=== PATIENT | female | born 1995 | race Hispanic/Latino ===

== ENCOUNTER 2022-02-24 05:59 | Inpatient (IN) | payer OTHER, SELFPAY ==
[2022-02-24 06:36] VITALS: BMI 33.9
[2022-02-24] MEDS ORDERED: Methylergonovine 0.2 MG/ML VIAL IM PRN (06:38)
[2022-02-24] MEDS ORDERED: Carboprost 250 MCG/ML AMP IM PRN (06:38)
[2022-02-24] MEDS ORDERED: Promethazine HCl 25 MG/ML VIAL IM PRN (06:38)
[2022-02-24] MEDS ORDERED: Misoprostol 200 MCG TAB PR PRN (06:38)
[2022-02-24] MEDS ORDERED: Lidocaine 1% (PF) 30 ML VIAL SC PRN (06:38)
[2022-02-24] MEDS ORDERED: Butorphanol Tartrate 1 MG/ML VIAL SLOW IVP PRN (06:38)
[2022-02-24] MEDS ORDERED: Diphenoxylate HCl/Atropine Tablet PO PRN (06:38)
[2022-02-24] MEDS ORDERED: hydrALAZINE 20 MG/ML VIAL SLOW IVP PRN ×2 (06:38→17:41)
[2022-02-24] MEDS ORDERED: Ondansetron PF 4 MG/2 ML Vial IVP PRN (06:38)
[2022-02-24] MEDS ORDERED: Penicillin G Potassium 5 MILL.UNITS in Sodium Chloride 0.9% 100 ML IVPB SCH (06:45)
[2022-02-24] MEDS ORDERED: NS w/ Oxytocin 30 units 500 ML IV SCH ×2 (06:45)
[2022-02-24] MEDS ORDERED: Lactated Ringer's 1,000 ML IV SCH (06:45)
[2022-02-24 06:55] LABS: Hemoglobin 14.3 g/dL (12.0-15.5); Mean Corpuscular Hemoglobin 28.7 pg (27.0-33.0); Mean Corpuscular Volume 84.3 fl (81.6-98.3); Platelet Count 332 10x3/uL (150-450); RBC Distribution Width 13.2 % (11.5-14.5); Red Blood Cell (RBC) Count 4.98 10x6/uL (3.90-5.03); White Blood Cell (WBC) Count 14.3 10x3/uL (3.5-10.5)
[2022-02-24] MEDS ORDERED: Penicillin G Potassium 5 MILL.UNITS VIAL ONE (07:00)
[2022-02-24 07:28] LABS: Syphilis Antibody Nonreactive (Nonreactive); Syphilis Antibody Index 0.04 S/CO (<1.00 Non-Reactive)
[2022-02-24 07:30] LABS: Hep B Surf Ag Non-Reactive S/CO (NonReactive)
[2022-02-24 07:31] LABS: HBSAg Index 0.18 S/CO (0-0.99)
[2022-02-24] MEDS ORDERED: Fentanyl 2 mcg/Bup 0.1% Cadd 100 ML ONE (07:37)
[2022-02-24] MEDS ORDERED: Bupivacaine 0.25% HCL 30 ML VIAL ONE (08:00)
[2022-02-24] MEDS ORDERED: Penicillin G 2.5 MILL.units 2.5 MILL.UNITS in Premix Bag 1 BAG IVPB SCH (11:00)
[2022-02-24 11:49] LABS: SARS-CoV-2 NAA Rapid Test Not Detected (NotDetected)
[2022-02-24] MEDS ORDERED: Milk Of Magnesia 30 ML UDCUP PO PRN (17:41)
[2022-02-24] MEDS ORDERED: HYDROcodone/Acetaminophen 5/325 mg Tablet PO PRN (17:41)
[2022-02-24] MEDS ORDERED: Lanolin Ointment 7 GM TUBE TOP PRN (17:41)
[2022-02-24] MEDS ORDERED: Bisacodyl 10 MG SUPP PR PRN (17:41)
[2022-02-24] MEDS ORDERED: Ferrous Sulfate 325 MG TAB PO SCH (18:00)
[2022-02-24] MEDS ORDERED: NS w/ Oxytocin 30 units 500 ML ONE (18:15)
[2022-02-24] MEDS: Docusate 100 MG CAP PO SCH (20:12)
[2022-02-24] MEDS: Ibuprofen 800 MG TAB PO SCH (20:13)
[2022-02-25] MEDS: Ibuprofen 800 MG TAB PO SCH ×3 (04:52→21:10)
[2022-02-25] MEDS: Ferrous Sulfate 325 MG TAB PO SCH ×2 (08:30→17:50)
[2022-02-25] MEDS: Docusate 100 MG CAP PO SCH ×2 (08:30→21:11)
[2022-02-25] MEDS: Prenatal Vitamin 1 TAB PO SCH (08:30)
[2022-02-25] MEDS ORDERED: Boostrix 0.5 ML (Tdap) VIAL IM ONE (17:41)
[2022-02-26] MEDS: Ibuprofen 800 MG TAB PO SCH (05:53)
[2022-02-26 07:46] VITALS: BP 108/59; TEMP 98
[2022-02-26] MEDS: Docusate 100 MG CAP PO SCH (08:55)
[2022-02-26] MEDS: Ferrous Sulfate 325 MG TAB PO SCH (08:55)
[2022-02-26] MEDS: Prenatal Vitamin 1 TAB PO SCH (08:55)
== END 2022-02-26 11:10 | disposition home or self-care (01) | DRG 807 ==
LOC: CSHLD/OP 05:59 → CSHLD 06:31 → CSHPP 18:30
PROVIDERS: ADMIT Obstetrics & Gynecology; ATTEND Obstetrics & Gynecology
PROC: 10E0XZZ Delivery of Products of Conception, External Approach (ICD-10-PCS; principal; 2022-02-24)
DX: O42.02 Full-term premature rupture of membranes, onset of labor within 24 hours of rupture (principal); Z37.0 Single live birth; Z3A.37 37 weeks gestation of pregnancy; Z20.822 Contact with and (suspected) exposure to COVID-19
CPT/HCPCS: 85027; 86780; 86850; 86900; 86901; 87340; J2540; S0020; U0002